=== PATIENT | female | born 1940 | race Two or more races ===

== ENCOUNTER → 2018-11-17 09:08 | Outpatient (CLI) | payer OTHER ==
[~2018-11-17 09:08] MED LIST: INDERAL LA80 MG; VASOTEC5 MG; ZOCOR5 MG
== END | disposition home or self-care (01) ==
LOC: RAD 09:08
DX: M79.641 Pain in right hand (principal)

== ENCOUNTER 2021-01-31 09:15 | Outpatient (CLI) | payer OTHER | END 2021-01-31 09:18 | disposition home or self-care (01) | LOC: RAD 09:15 | PROVIDERS: ATTEND Internal Medicine Rheumatology | DX: M15.0 Primary generalized (osteo)arthritis (principal); M25.542 Pain in joints of left hand; M25.541 Pain in joints of right hand; M79.672 Pain in left foot ==

== ENCOUNTER 2021-02-11 12:54 | Outpatient (CLI) | payer OTHER | END 2021-02-11 13:01 | disposition home or self-care (01) | LOC: NUCLEAR 12:54 | PROVIDERS: ATTEND Internal Medicine Rheumatology | DX: M81.0 Age-related osteoporosis without current pathological fracture (principal) ==

== ENCOUNTER 2021-06-20 10:05 | Outpatient (CLI) | payer OTHER | END 2021-06-20 10:11 | disposition home or self-care (01) | LOC: RAD 10:05 | PROVIDERS: ATTEND Internal Medicine Rheumatology | DX: M17.12 Unilateral primary osteoarthritis, left knee (principal) ==

== ENCOUNTER 2021-11-12 09:16 | Outpatient (CLI) | payer OTHER | END 2021-11-12 09:18 | disposition home or self-care (01) | LOC: MRI 09:16 | PROVIDERS: ATTEND Physical Medicine & Rehabilitation | DX: M54.59 Other low back pain (principal) | CPT/HCPCS: 72148 ==

== ENCOUNTER 2022-12-21 13:22 | Emergency (ER) | payer OTHER ==
[~2022-12-21] VITALS: Ht 162.6 cm; Wt 46.7 kg
== END 2022-12-21 17:10 | disposition home or self-care (01) ==
LOC: ER 13:22
DX: S80.211A Abrasion, right knee, initial encounter (principal); W18.39XA Other fall on same level, initial encounter; Y93.89 Activity, other specified; Y92.512 Supermarket, store or market as the place of occurrence of the external cause; Y99.9 Unspecified external cause status; M25.562 Pain in left knee

== ENCOUNTER 2023-06-01 09:14 | Outpatient (CLI) | payer OTHER | END 2023-06-01 09:16 | disposition home or self-care (01) | LOC: RAD 09:14 | PROVIDERS: ATTEND Physical Medicine & Rehabilitation | DX: M25.562 Pain in left knee (principal) ==

== ENCOUNTER 2024-01-25 08:47 | Outpatient (CLI) | payer OTHER | END 2024-01-25 08:52 | disposition home or self-care (01) | LOC: RAD 08:47 | PROVIDERS: ATTEND Internal Medicine Rheumatology | DX: M17.0 Bilateral primary osteoarthritis of knee (principal) ==